=== PATIENT | female | born 1985 | race Caucasian/White ===

== ENCOUNTER 2016-09-23 17:42 | Emergency (ER) | payer OTHER ==
[2016-09-23 17:56] VITALS: BP 120/76; PULSE 60; RESP 17; TEMP 98.9; O2SAT 100
[2016-09-23] MEDS ORDERED: Liquid Adhesive TOP ONE (18:01)
--- NOTE | 2016-09-23 18:30 | ED PDOC ---
HPI: Wound Care - HPI Time Seen by Provider: 09/23/16 17:57 Chief Complaint (Nursing): Abnormal Skin Integrity Chief Complaint (Provider): Abnormal Skin Integrity History Per: Patient Exam Limitations: no limitations Onset/Duration Of Symptoms: Hrs (prior to arrival ) Additional Complaint(s): Jey Keys, 31 year old female presents to the ED for a laceration to her forehead occurring earlier today while the patient was at work. The patient reports she walked into a glass door causing the laceration. She denies headache , loss of consciousness, neck pain, any previous tbi, or anticoagulant use. PMD: Non [facility] Provider Past Medical History Reviewed: Historical Data, Nursing Documentation, Vital Signs Vital Signs: Last Vital Signs Temp 98.9 F 09/23/16 17:53 Pulse 60 09/23/16 17:53 Resp 17 09/23/16 17:53 BP 120/76 09/23/16 17:53 Pulse Ox 100 09/23/16 17:53 - Medical History PMH: No Chronic Diseases - Family History Family History: States: Unknown Family Hx - Social History Current smoker - smoking cessation education provided: No Ex-Smoker (has not smoked in the last 12 months): No Alcohol: None Drugs: Denies - Immunization History Hx Tetanus Toxoid Vaccination: Yes Hx Influenza Vaccination: No Hx Pneumococcal Vaccination: No - Allergies Allergies/Adverse Reactions: Allergies Allergy/AdvReac Type Severity Reaction Status Date / Time No Known Allergies Allergy Verified 09/23/16 17:52 Review of Systems ROS Statement: Except As Marked, All Systems Reviewed And Found Negative Musculoskeletal: Negative for: Neck Pain Skin: Positive for: Other (laceration to forehead ) Neurological: Negative for: Headache, Other (no loss of consciousness ) Physical Exam - Reviewed Nursing Documentation Reviewed: Yes Vital Signs Reviewed: Yes - Physical Exam Appears: Positive for: Well, Non-toxic, No Acute Distress Head Exam: Positive for: ATRAUMATIC, NORMAL INSPECTION, NORMOCEPHALIC (1 cm linear, very superficial laceration just superior to medial side of right eyebrow; no active bleeding ) - ECG O2 Sat by Pulse Oximetry: 100 (RA) Pulse Ox Interpretation: Normal Procedure: Wound Repair - Irrigated Irrigated with ml of normal saline: irrigated with 200 ccs of saline and dermabond used Medical Decision Making Medical Decision Making: Impression: linear, very superficial laceration to forehead Plan: * Mastisol Adhesive 0.66 ml Top Scribe Attestation: Documented by Liz Baker, acting as a scribe for Tai Hampton PA-C. Provider Scribe Attestation: All medical record entries made by the Scribe were at my direction and personally dictated by me. I have reviewed the chart and agree that the record accurately reflects my personal performance of the history, physical exam, medical decision making, and the department course for this patient. I have also personally directed, reviewed, and agree with the discharge instructions and disposition. Disposition - Clinical Impression Clinical Impression: Head injury, Forehead laceration - Patient ED Disposition Is Patient to be Admitted: No - Disposition Disposition: Routine/Home Disposition Time: 18:15 Condition: STABLE Instructions: Head Injury (ED), Skin Adhesive Care (ED) Print Language: MAORI
== END 2016-09-23 23:17 | disposition home or self-care (01) ==
LOC: H.ER 17:42
DX: S01.81XA Laceration without foreign body of other part of head, initial encounter (principal); W22.8XXA Striking against or struck by other objects, initial encounter; Y99.0 Civilian activity done for income or pay